=== PATIENT | male | born 1945 | race Caucasian/White ===

== ENCOUNTER 2020-09-18 19:31 | Inpatient (IN) | payer MEDICARE ==
[2020-09-18] MEDS ORDERED: ACETAMINOPHEN TAB 325 MG TAB PO PRN (19:57)
[2020-09-18] MEDS ORDERED: NALOXONE 0.4 MG/ML 1 ML VIAL IV PRN (19:57)
[2020-09-18] MEDS ORDERED: HEPARIN SODIUM 1,000 UN/ML (10ML VL) IV PRN (19:59)
[2020-09-18] MEDS ORDERED: DILTIAZEM 125 MG in SODIUM CHLORIDE 0.9% 100 ML IV SCH (20:00)
[2020-09-18] MEDS ORDERED: HEPARIN SOD,PORK IN 0.45% NACL 25,000 UNIT in 0.45% NACL 1 250ML.BAG IV SCH (20:00)
--- NOTE | 2020-09-18 20:04 | ED ---
General Adult HPI - General Chief complaint: Chest Pain Stated complaint: A-Fib Time Seen by Provider: 09/18/20 19:38 Source: patient, EMS, RN notes reviewed, old records reviewed Mode of arrival: EMS Limitations: no limitations - History of Present Illness Initial comments: 75-year-old male transferred from outside hospital for atrial fibrillation with RVR and chest pain. Patient was started on Cardizem and heparin and transferred for cardiology consultation. He had developed palpitations and jaw pain around 2 PM this afternoon. He had gone to the outside hospital and was found to be fibrillation. He had no associated vomiting. He has no symptoms at the time of my evaluation. He has a previous history of CAD status post stenting cardiac b ypass. - Related Data Allergies Allergy/AdvReac Type Severity Reaction Status Date / Time No Known Allergies Allergy Verified 09/18/20 19:46 Review of Systems ROS Statement: Those systems with pertinent positive or pertinent negative responses have been documented in the HPI. ROS Other: All systems not noted in ROS Statement are negative. Past Medical History Past Medical History: Atrial Fibrillation, Hypertension History of Any Multi-Drug Resistant Organisms: None Reported Additional Past Surgical History / Comment(s): ismaelag 1999, 2013 Smoking Status: Former smoker Past Alcohol Use History: None Reported Past Drug Use History: None Reported General Exam Limitations: no limitations General appearance: alert, in no apparent distress Head exam: Present: atraumatic, normocephalic Eye exam: Present: normal appearance, PERRL ENT exam: Present: normal exam Neck exam: Present: normal inspection. Absent: tenderness, meningismus Respiratory exam: Present: normal lung sounds bilaterally. Absent: respiratory distress, wheezes Cardiovascular Exam: Present: regular rate, normal rhythm GI/Abdominal exam: Present: soft. Absent: distended, tenderness Extremities exam: Present: normal inspection, normal capillary refill. Absent: pedal edema Neurological exam: Present: alert, oriented X3, CN II-XII intact. Absent: motor sensory deficit Psychiatric exam: Present: normal affect, normal mood Skin exam: Present: warm, dry, intact. Absent: cyanosis, diaphoretic Course Vital Signs 09/18/20 19:33 Temperature 97.5 F L Pulse Rate 72 Respiratory 20 Rate Blood Pressure 149/80 O2 Sat by Pulse 100 Oximetry EKG Findings - EKG Comments: EKG Findings:: EKG: Sinus rhythm with first-degree AV block rate is 77, TX interval 210, QRS duration 444, no ST segment elevation. Medical Decision Making - Medical Decision Making 75-year-old male presented as transfer from outside hospital. He is in sinus rhythm at the time my initial evaluation. I will continue this patient on heparin. The symptoms of jaw and chest pain. He will be admitted with serial cardiac enzymes. Repeat laboratories testing is performed as this patient was hyponatremic at 123 and hypokalemic at 2.9. He had a negative initial troponin at outside hospital. He had a normal CBC. He will be admitted to internal medicine with cardiology on consult. Disposition Clinical Impression: Chest pain, Atrial fibrillation with RVR Disposition: ADMITTED IP TO THIS HOSP Condition: Stable Is patient prescribed a controlled substance at d/c from ED?: No Referrals: Epifanio Jacobs MD [Primary Care Provider] - 1-2 days Decision to Admit Reason: Admit from EC Decision Date: 09/18/20 Decision Time: 20:04
[2020-09-18] MEDS: SODIUM CHLORIDE 0.9% 1,000 ML IV SCH (20:42)
[2020-09-18] MEDS ORDERED: SODIUM CHLORIDE 0.9% 500 ML 500 ML IV ONE (23:29)
[2020-09-19 03:21] LABS: Basophils % (A) 0 %; Eosinophils # (A) 0.1 k/uL (0-0.7); Eosinophils % (A) 1 %; HCT 36.4 % (39.0-53.0); HGB 12.7 gm/dL (13.0-17.5); Lymphocytes # (A) 1.3 k/uL (1.0-4.8); Lymphocytes % (A) 15 %; MCHC 34.8 g/dL (31.0-37.0); Mean Platelet Volume 6.7; Monocytes # (A) 0.4 k/uL (0-1.0); Monocytes % (A) 5 %; Neutrophils # (A) 6.3 k/uL (1.3-7.7); Neutrophils % (A) 76 %; Platelet Count 231 k/uL (150-450); RBC 3.83 m/uL (4.30-5.90); RDW 13.7 % (11.5-15.5); WBC 8.2 k/uL (3.8-10.6)
[2020-09-19 03:29] LABS: Partial Thromboplastin Time 39.4 sec (22.0-30.0); Prothrombin Time 10.7 sec (9.0-12.0)
[2020-09-19 03:33] LABS: African American GFR (CKD) >90 (>60 ml/min/1.73 sqM); Anion Gap 5 mmol/L; Blood Urea Nitrogen 15 mg/dL (9-20); Calcium 8.8 mg/dL (8.4-10.2); Carbon Dioxide 28 mmol/L (22-30); Chloride 94 mmol/L (98-107); Glucose 122 mg/dL (74-99); Non-African American GFR(CKD) 88 (>60 ml/min/1.73 sqM); Potassium 3.8 mmol/L (3.5-5.1); Sodium 127 mmol/L (137-145)
[2020-09-19] MEDS: SODIUM CHLORIDE 0.9% 1,000 ML IV SCH ×2 (10:02→23:46)
[2020-09-19] MEDS: METOPROLOL TARTRATE 50 MG TAB PO SCH ×2 (11:20→19:43)
--- NOTE | 2020-09-19 11:38 | ECHOF ---
Referral Reason:LV function MEASUREMENTS -------- HEIGHT: 172.7 cm WEIGHT: 86.2 kg BP: 115/64 RVIDd: 2.8 cm (< 3.3) IVSd: 1.3 cm (0.6 - 1.1) LVIDd: 4.2 cm (3.9 - 5.3) LVPWd: 1.2 cm (0.6 - 1.1) IVSs: 1.6 cm LVIDs: 2.3 cm LVPWs: 1.6 cm LA Diam: 3.7 cm (2.7 - 3.8) LAESV Index (A-L): 26.06 ml/m Ao Diam: 3.3 cm (2.0 - 3.7) AV Cusp: 1.8 cm (1.5 - 2.6) MV EXCURSION: 19.436 mm (> 18.000) MV EF SLOPE: 112 mm/s (70 - 150) EPSS: 0.7 cm MV E Nima: 1.00 m/s MV DecT: 183 ms MV A Nima: 0.82 m/s MV E/A Ratio: 1.21 RAP: 5.00 mmHg RVSP: 26.84 mmHg FINDINGS -------- Sinus rhythm. This was a technically adequate study. The left ventricular size is normal. There is mild concentric left ventricular hypertrophy. Overa ll left ventricular systolic function is low-normal with, an EF between 50 - 55 %. The diastolic fi lling pattern indicates impaired relaxation 15.83. Apical anterior LV wall motion is hypokinetic. Apical septum LV wall motion is hypokinetic. The right ventricle is normal in size. Normal LA size by volume 22+/-6 ml/m2. The right atrial size is normal. Interatrial and interventricular septum intact. There is mild aortic valve sclerosis. Trace to mild aortic regurgitation. The mitral valve leaflets are mildly thickened. Mild mitral regurgitation is present. The tricuspid valve appears structurally normal. Mild tricuspid regurgitation present. Right vent ricular systolic pressure is normal at < 35 mmHg. There is no pulmonic regurgitation present. The aortic root size is normal. Normal inferior vena cava with normal inspiratory collapse consistent with estimated right atrial pre ssure of 5 mmHg. There is no pericardial effusion. CONCLUSIONS -------- 1. There is mild concentric left ventricular hypertrophy. 2. Overall left ventricular systolic function is low-normal with, an EF between 50 - 55 %. 3. Apical anterior LV wall motion is hypokinetic. 4. Apical septum LV wall motion is hypokinetic. 5. Normal LA size by volume 22+/-6 ml/m2. 6. Trace to mild aortic regurgitation. 7. Mild mitral regurgitation is present. 8. Mild tricuspid regurgitation present. 9. There is no pericardial effusion. MANAGER FOOD: Libertad Garza RDCS
--- NOTE | 2020-09-19 11:45 | P.CRDCN ---
History of Present Illness History of present illness: HISTORY OF PRESENTING ILLNESS This is a pleasant 75-year-old male past medical history significant for coronary artery disease s/p 3 vessel CABG in 1999,Also states he underwent another CABG in 2013, peripheral artery disease s/p stent placement in 2019 (was placed on Plavix), hypertension, dyslipidemia, former tobacco use. He follows with Dr. Dupont, in [place]. We have been asked to see in consultation for atrial fibrillation with rapid ventricular response. Patient states he developed palpitations and jaw pain around 2 PM yesterday 09/18/2020. He presented to [facility] and was found to be in atrial fibrillation. Patient transferred from outside hospital for atrial fibrillation with RVR and chest pain. Patient was started on Cardizem and heparin and transferred for cardiology consultation. He converted to sinus rhythm. He denies any chest pain, shortness of breath, lower extremity edema, fatigue, weakness, lightheadedness, syncope. He states he was told he had an "off" and irregular heart beat before, he was told to take magnesium supplementation at that time. He also states that after his coronary artery bypass in 2013 patient states that he did have atrial fibrillation and was "shocked" before. He states when he had his bypass surgery he did not have jaw pain or these symptoms at that time. He denies history of diabetes or stroke. DIAGNOSTICS EKG at [facility] reveals atrial fibrillation with rapid ventricular response. EKG at [facility] revealed sinus rhythm heart rate 77, first-degree AV block, occasional PVCs. Telemetry tracings indicate sinus mechanism Most recent echocardiogram 02/2012 With EF 50%, left ventricular filling pattern suggestive of stage 1 diastolic dysfunction, mild MR, mild TR Most recent stress test 02/2012 negative for reversible ischemia Cardiac catheterization in 12/2004 at [facility] revealed patent PITTS to LAD SVG to Cx, total occlusion of the vein graft to dian RCA, total occlusion of RCA. Disease in the obtuse marginal branch of the circumflex, however, there is competitive filling coming from both bypass graft and the [place]az[place] circulation. medical therapy was advise. Laboratory reviewed, WBC 8.2, hemoglobin 12.7, platelets 231, sodium 127, serum potassium 3.8, P1 15, serum creatinine 0.8, troponin 0.092 Current home cardiac medications include aspirin 81 mg daily, Plavix 75 mg daily, metoprolol tartrate 25 mg twice day, losartan 75 mg daily, atorvastatin 80 mg nightly REVIEW OF SYSTEMS At the time of my exam: CONSTITUTIONAL: Denies fever or chills. CARDIOVASCULAR: Positive palpitations Denies chest pain, shortness of breath, orthopnea, PND RESPIRATORY: Denies cough. GASTROINTESTINAL: Denies abdominal pain, diarrhea, constipation, nausea or vomiting. MUSCULOSKELETAL: Denies myalgias. NEUROLOGIC: Denies numbness, tingling, headacbe or weakness. ENDOCRINE: Denies fatigue, weight change, polydipsia or polyurina. GENITOURINARY: Denies burning, hematuria or urgency with micturation. HEMATOLOGIC: Denies history of anemia or bleeding. PHYSICAL EXAMINATION CONSTITUTIONAL: No apparent distress. HEENT: Head is normocephalic. Pupils are equal, round. Sclerae anicteric. Mucous membranes of the mouth are moist. No JVD. No carotid bruit. CHEST EXAMINATION: Lungs are clear to auscultation. No chest wall tenderness is noted on palpation or with deep breathing. HEART EXAMINATION: Regular rate and rhythm. S1, S2 heard. Systolic murmur at apex ABDOMEN: Soft, nontender. Positive bowel sounds. EXTREMITIES: 2+ peripheral pulses, no lower extremity edema and no calf tenderness. SKIN: intact NEUROLOGIC EXAMINATION: Patient is awake, alert and oriented x3. ASSESSMENT Paroxysmal atrial fibrillation -[id number] score 3 Coronary artery disease s/p 3 vessel CABG in 1999, and had another CABG in 2013, unknown details Peripheral vascular disease s/p stenting 2019, unknown details Hypertension Dyslipidemia Former tobacco use. PLAN Obtain 2D echocardiogram Patient currently on heparin drip, Eliquis 5mg BID being checked by case management for coverage. Metoprolol tartrate increased to 50mg BID Electrophysiology consult placed for Dr. Plascencia to evaluate patient regarding further management If patient being placed on Eliquis 5mg BID we will hold patient's Plavix Continue aspirin and statin On discharge patient to follow up with his primary animal attendants and trainers. Further recommendations based on clinical course Nurse Practitioner note has been reviewed, I agree with a documented findings and plan of care. Patient was seen and examined. Past Medical History Past Medical History: Atrial Fibrillation, Coronary Artery Disease (CAD), Heart Failure, Hypertension Additional Past Medical History / Comment(s): Stent placed in 2004. History of Any Multi-Drug Resistant Organisms: None Reported Past Surgical History: Coronary Bypass/CABG Additional Past Surgical History / Comment(s): CABG 1999, 2013 Past Anesthesia/Blood Transfusion Reactions: No Reported Reaction Past Psychological History: No Psychological Hx Reported Smoking Status: Never smoker Past Alcohol Use History: None Reported Past Drug Use History: None Reported Medications and Allergies Home Medications Medication Instructions Recorded Confirmed Type Aspirin EC [Ecotrin Low Dose] 81 mg PO DAILY 09/18/20 09/18/20 History Atorvastatin [Lipitor] 80 mg PO HS 09/18/20 09/18/20 History Losartan [Cozaar] 75 mg PO DAILY 09/18/20 09/18/20 History Metoprolol Tartrate [Lopressor] 25 mg PO BID 09/18/20 09/18/20 History Apixaban [Eliquis] 5 mg PO BID #60 tab 09/19/20 Rx Allergies Allergy/AdvReac Type Severity Reaction Status Date / Time No Known Allergies Allergy Verified 09/18/20 20:49 Physical Exam Vitals: Vital Signs Temp Pulse Pulse Resp BP BP Pulse Ox 09/19/20 04:00 97.6 F 68 18 115/64 98 09/19/20 01:00 75 18 124/69 100 09/18/20 23:20 60 20 123/70 100 09/18/20 23:15 53 L 18 96/69 99 09/18/20 23:10 51 L 16 64/46 99 09/18/20 23:00 54 L 20 121/52 100 09/18/20 22:30 73 20 119/71 97 09/18/20 22:00 71 20 123/73 100 09/18/20 21:00 73 20 128/95 95 09/18/20 19:33 97.5 F L 72 20 149/80 100 Intake and Output 09/18/20 09/19/20 09/19/20 22:59 06:59 14:59 Intake Total 372.978 Output Total 250 Balance 122.978 Intake: IV 300 Sodium Chloride 0.9% 1, 300 000 ml @ 75 mls/hr IV . [id number] [facility] Rx#:[id number] Intake, IV Titration 72.978 Amount Heparin Sod,Pork in 0.45% 72.978 NaCl 25,000 unit In 0.45 % NaCl 1 250ml.bag @ 11.6 UNITS/KG/HR 9.997 mls/hr IV .Q24H [facility] Rx#: [id number] Output: Urine 250 Other: Voiding Method Bedside Commode Urinal # Voids 1 Weight 86.183 kg 86.183 kg Results 09/19/20 02:24 09/19/20 02:24 Cardiac Enzymes 09/18/20 09/19/20 Range/Units 21:16 00:05 Troponin I 0.092 H* 0.095 H* (0.000-0.034) ng/mL Coagulation 09/19/20 Range/Units 02:24 PT 10.7 (9.0-12.0) sec APTT 39.4 H (22.0-30.0) sec CBC 09/19/20 Range/Units 02:24 WBC 8.2 (3.8-10.6) k/uL RBC 3.83 L (4.30-5.90) m/uL Hgb 12.7 L (13.0-17.5) gm/dL Hct 36.4 L (39.0-53.0) % Plt Count 231 (150-450) k/uL Comprehensive Metabolic Panel 09/19/20 Range/Units 02:24 Sodium 127 L (137-145) mmol/L Potassium 3.8 (3.5-5.1) mmol/L Chloride 94 L (98-107) mmol/L Carbon Dioxide 28 (22-30) mmol/L BUN 15 (9-20) mg/dL Creatinine 0.81 (0.66-1.25) mg/dL Glucose 122 H (74-99) mg/dL Calcium 8.8 (8.4-10.2) mg/dL Current Medications Generic Name Dose Route Start Last Admin Trade Name Freq PRN Reason Stop Dose Admin Acetaminophen 650 mg 09/18/20 19:57 Acetaminophen Tab 325 Mg Tab PO Q6HR PRN Mild Pain or Fever > 100.5 Heparin Sodium (Porcine) 0 unit 09/18/20 19:59 09/19/20 04:06 Heparin Sodium 1,000 Un/Ml (10ml Vl) IV 2,150 unit PER PROTOCOL PRN Administration Low PTT Protocol Sodium Chloride 1,000 mls @ 75 mls/hr 09/18/20 20:00 09/18/20 20:42 Saline 0.9% IV 75 mls/hr .[id number] SAUL Administration Heparin Sodium/Sodium Chloride 250 mls @ 9.997 mls/hr 09/18/20 20:00 09/19/20 03:59 25,000 unit/ Sodium Chloride IV 13.6 units/kg/hr .Q24H SAUL 11.721 mls/hr Titration Protocol 11.6 UNITS/KG/HR Diltiazem HCl 125 mg/ Sodium 125 mls @ 5 mls/hr 09/18/20 20:00 09/18/20 20:41 Chloride IV 5 mg/hr .Q24H SAUL 5 mls/hr Administration 5 MG/HR Naloxone HCl 0.2 mg 09/18/20 19:57 Naloxone 0.4 Mg/Ml 1 Ml Vial IV Q2M PRN Opioid Reversal Intake and Output 09/18/20 09/19/20 09/19/20 22:59 06:59 14:59 Intake Total 372.978 Output Total 250 Balance 122.978 Intake: IV 300 Sodium Chloride 0.9% 1, 300 000 ml @ 75 mls/hr IV . [id number] [facility] Rx#:[id number] Intake, IV Titration 72.978 Amount Heparin Sod,Pork in 0.45% 72.978 NaCl 25,000 unit In 0.45 % NaCl 1 250ml.bag @ 11.6 UNITS/KG/HR 9.997 mls/hr IV .Q24H [facility] Rx#: [id number] Output: Urine 250 Other: Voiding Method Bedside Commode Urinal # Voids 1 Weight 86.183 kg 86.183 kg 09/19/20 02:24 09/19/20 02:24
--- NOTE | 2020-09-19 11:46 | P.DS ---
Providers Date of admission: 09/18/20 19:58 Attending physician: Eliecer Chaparro MD Consults: 09/18/20 19:58 Consult Physician Routine Consulting Provider: Ricki Plascencia Consult Reason/Comments: A. fib with RVR Do you want consulting provider notified?: Yes 09/19/20 11:25 Consult Physician Routine Consulting Provider: Ricki Plascencia Consult Reason/Comments: Electrophysiology consult Do you want consulting provider notified?: Already Contacted Primary care physician: Epifanio Jacobs Hospital Course: Patient is an 75-year-old the male came in with complaints of a palpitations which started around the afternoon as today. Patient denied any significant chest pain patient denied any fever chills patient was having some shortness of breath. Patient was found to be in atrial fibrillation was started on Cardizem patient converted to sinus rhythm patient does take 25 mg twice a day of metoprolol which will be switched to 50 mg twice a day patient is a first episode of A. fib. Patient denied any history of and S2 heart failure but does have history of coronary artery disease with CABG twice in the past. Patient follows up with an outside flap maker cardiology was consulted troponins are minimally elevated because of atrial fibrillation. Patient doesn't have any signs or symptoms of sepsis at this time. TSH is not available at this time patient's sodium is 127. Patient was receiving IV fluids since last night. Patient appears to be dehydrated on admission. REVIEW OF SYSTEMS: CONSTITUTIONAL: No fever, no malaise, no fatigue. HEENT: No recent visual problems or hearing problems. Denied any sore throat. CARDIOVASCULAR: No chest pain, orthopnea, PND, no syncope. PULMONARY: No shortness of breath, no cough, no hemoptysis. GASTROINTESTINAL: No diarrhea, no nausea, no vomiting, no abdominal pain. NEUROLOGICAL: No headaches, no weakness, no numbness. HEMATOLOGICAL: Denies any bleeding or petechiae. GENITOURINARY: Denies any burning micturition, frequency, or urgency. MUSCULOSKELETAL/RHEUMATOLOGICAL: Denies any joint pain, swelling, or any muscle pain. ENDOCRINE: Denies any polyuria or polydipsia. The rest of the 14-point review of systems is negative. PHYSICAL EXAMINATION: GENERAL: The patient is alert and oriented x3, not in any acute distress. Well developed, well nourished. HEENT: Pupils are round and equally reacting to light. EOMI. No scleral icterus. No conjunctival pallor. Normocephalic, atraumatic. No pharyngeal erythema. No thyromegaly. CARDIOVASCULAR: S1 and S2 present. No murmurs, rubs, or gallops. PULMONARY: Chest is clear to auscultation, no wheezing or crackles. ABDOMEN: Soft, nontender, nondistended, normoactive bowel sounds. No palpable organomegaly. MUSCULOSKELETAL: No joint swelling or deformity. EXTREMITIES: No cyanosis, clubbing, or pedal edema. NEUROLOGICAL: Gross neurological examination did not reveal any focal deficits. SKIN: No rashes. Assessment and plan - atrial fibrillation converted to sinus rhythm, rapid ventricular rate on admission patient appears to have paroxysmal A. fib: Cardiology evaluated the patient patient will be started on anticoagulation. We'll check if he shows covers Eliquis 60 patient will be discharged on Eliquis. Patient was bit hypotensive stress because of a mild dehydration as well as atrial fibrillation which improved at this time patient takes losartan which we will continue. Atrial fibrillation is probably secondary to dehydration. Echocardiogram was ordered and results are pending -I bulimic hyponatremia secondary to dehydration received IV fluids and repeat basic metabolic profile again today -Mild elevation of troponins: Secondary to atrial fibrillation -Hypertension -Coronary artery disease - DVT prophylaxis: Is on IV heparin and will be discharged on Eliquis Patient will be discharged today most probably depending on cardiology's recommendations increasing the dose of metoprolol to 50 twice a day patient will be started on Eliquis patient will undergo evaluation by electrophysiology. Awaiting echocardiogram Patient Condition at Discharge: Stable Plan - Discharge Summary New Discharge Prescriptions: New Apixaban [Eliquis] 5 mg PO BID #60 tab Continue Losartan [Cozaar] 75 mg PO DAILY Aspirin EC [Ecotrin Low Dose] 81 mg PO DAILY Atorvastatin [Lipitor] 80 mg PO HS Discontinued Aspirin EC [Ecotrin] 325 mg PO DAILY Clopidogrel [Plavix] 75 mg PO DAILY No Action Metoprolol Tartrate [Lopressor] 25 mg PO BID Discharge Medication List Aspirin EC [Ecotrin Low Dose] 81 mg PO DAILY 09/18/20 [History] Atorvastatin [Lipitor] 80 mg PO HS 09/18/20 [History] Losartan [Cozaar] 75 mg PO DAILY 09/18/20 [History] Metoprolol Tartrate [Lopressor] 25 mg PO BID 09/18/20 [History] Apixaban [Eliquis] 5 mg PO BID #60 tab 09/19/20 [Rx] Follow up Appointment(s)/Referral(s): Epifanio Jacobs MD [Primary Care Provider] - 3 Days
--- NOTE | 2020-09-19 11:47 | P.HPIM ---
History of Present Illness Patient is an 75-year-old the male came in with complaints of a palpitations which started around the afternoon as today. Patient denied any significant chest pain patient denied any fever chills patient was having some shortness of breath. Patient was found to be in atrial fibrillation was started on Cardizem patient converted to sinus rhythm patient does take 25 mg twice a day of metoprolol which will be switched to 50 mg twice a day patient is a first episode of A. fib. Patient denied any history of and S2 heart failure but does have history of coronary artery disease with CABG twice in the past. 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 Patient doesn't have any signs or symptoms of sepsis at this time. TSH is not available at this time patient's sodium is 127. Patient was receiving IV fluids since last night. Radha mccartney appears to be dehydrated on admission. REVIEW OF SYSTEMS: CONSTITUTIONAL: No fever, no malaise, no fatigue. HEENT: No recent visual problems or hearing problems. Denied any sore throat. CARDIOVASCULAR: No chest pain, orthopnea, PND, no syncope. PULMONARY: No shortness of breath, no cough, no hemoptysis. GASTROINTESTINAL: No diarrhea, no nausea, no vomiting, no abdominal pain. NEUROLOGICAL: No headaches, no weakness, no numbness. HEMATOLOGICAL: Denies any bleeding or petechiae. GENITOURINARY: Denies any burning micturition, frequency, or urgency. MUSCULOSKELETAL/RHEUMATOLOGICAL: Denies any joint pain, swelling, or any muscle pain. ENDOCRINE: Denies any polyuria or polydipsia. The rest of the 14-point review of systems is negative. PHYSICAL EXAMINATION: GENERAL: The patient is alert and oriented x3, not in any acute distress. Well developed, well nourished. HEENT: Pupils are round and equally reacting to light. EOMI. No scleral icterus. No conjunctival pallor. Normocephalic, atraumatic. No pharyngeal erythema. No thyromegaly. CARDIOVASCULAR: S1 and S2 present. No murmurs, rubs, or gallops. PULMONARY: Chest is clear to auscultation, no wheezing or crackles. ABDOMEN: Soft, nontender, nondistended, normoactive bowel sounds. No palpable organomegaly. MUSCULOSKELETAL: No joint swelling or deformity. EXTREMITIES: No cyanosis, clubbing, or pedal edema. NEUROLOGICAL: Gross neurological examination did not reveal any focal deficits. SKIN: No rashes. Assessment and plan - atrial fibrillation converted to sinus rhythm, rapid ventricular rate on admission patient appears to have paroxysmal A. fib: Cardiology evaluated the patient patient will be started on anticoagulation. We'll check if he shows covers Eliquis 60 patient will be discharged on Eliquis. Patient was bit hypotensive stress because of a mild dehydration as well as atrial fibrillation which improved at this time patient takes losartan which we will continue. Atrial fibrillation is probably secondary to dehydration. Echocardiogram was ordered and results are pending -I bulimic hyponatremia secondary to dehydration received IV fluids and repeat basic metabolic profile again today -Mild elevation of troponins: Secondary to atrial fibrillation -Hypertension -Coronary artery disease - DVT prophylaxis: Is on IV heparin and will be discharged on Eliquis Patient will be discharged today most probably depending on cardiology's recommendations increasing the dose of metoprolol to 50 twice a day patient will be started on Eliquis patient will undergo evaluation by electrophysiology. Awaiting echocardiogram Patient Condition at Discharge: Stable Past Medical History Past Medical History: Atrial Fibrillation, Coronary Artery Disease (CAD), Heart Failure, Hypertension Additional Past Medical History / Comment(s): Stent placed in 2004. History of Any Multi-Drug Resistant Organisms: None Reported Past Surgical History: Coronary Bypass/CABG Additional Past Surgical History / Comment(s): CABG 1999, 2013 Past Anesthesia/Blood Transfusion Reactions: No Reported Reaction Past Psychological History: No Psychological Hx Reported Smoking Status: Never smoker Past Alcohol Use History: None Reported Past Drug Use History: None Reported Medications and Allergies Home Medications Medication Instructions Recorded Confirmed Type Aspirin EC [Ecotrin Low Dose] 81 mg PO DAILY 09/18/20 09/18/20 History Atorvastatin [Lipitor] 80 mg PO HS 09/18/20 09/18/20 History Losartan [Cozaar] 75 mg PO DAILY 09/18/20 09/18/20 History Metoprolol Tartrate [Lopressor] 25 mg PO BID 09/18/20 09/18/20 History Apixaban [Eliquis] 5 mg PO BID #60 tab 09/19/20 Rx Allergies Allergy/AdvReac Type Severity Reaction Status Date / Time No Known Allergies Allergy Verified 09/18/20 20:49 Physical Exam Vitals: Vital Signs Temp Pulse Pulse Resp BP BP Pulse Ox 09/19/20 11:18 97.5 F L 73 18 178/82 95 09/19/20 08:00 97.6 F 71 18 152/78 99 09/19/20 04:00 97.6 F 68 18 115/64 98 09/19/20 01:00 75 18 124/69 100 09/18/20 23:20 60 20 123/70 100 09/18/20 23:15 53 L 18 96/69 99 09/18/20 23:10 51 L 16 64/46 99 09/18/20 23:00 54 L 20 121/52 100 09/18/20 22:30 73 20 119/71 97 09/18/20 22:00 71 20 123/73 100 09/18/20 21:00 73 20 128/95 95 09/18/20 19:33 97.5 F L 72 20 149/80 100 Intake and Output 09/18/20 09/19/20 09/19/20 22:59 06:59 14:59 Intake Total 372.978 Output Total 250 400 Balance 122.978 -400 Intake: IV 300 Sodium Chloride 0.9% 1, 300 000 ml @ 75 mls/hr IV . [id number] SAUL Rx#:[id number] Intake, IV Titration 72.978 Amount Heparin Sod,Pork in 0.45% 72.978 NaCl 25,000 unit In 0.45 % NaCl 1 250ml.bag @ 11.6 UNITS/KG/HR 9.997 mls/hr IV .Q24H SAUL Rx#: [id number] Output: Urine 250 400 Other: Voiding Method Bedside Commode Bedside Commode Urinal Urinal # Voids 1 1 Weight 86.183 kg 86.183 kg Results CBC & Chem 7: 09/19/20 02:24 09/19/20 02:24 Labs: Abnormal Lab Results - Last 24 Hours (Table) 09/18/20 09/19/20 09/19/20 Range/Units 21:16 00:05 02:24 RBC 3.83 L (4.30-5.90) m/uL Hgb 12.7 L (13.0-17.5) gm/dL Hct 36.4 L (39.0-53.0) % APTT (22.0-30.0) sec Sodium (137-145) mmol/L Chloride (98-107) mmol/L Glucose (74-99) mg/dL Troponin I 0.092 H* 0.095 H* (0.000-0.034) ng/mL 09/19/20 09/19/20 09/19/20 Range/Units 02:24 02:24 10:35 RBC (4.30-5.90) m/uL Hgb (13.0-17.5) gm/dL Hct (39.0-53.0) % APTT 39.4 H 55.7 H (22.0-30.0) sec Sodium 127 L (137-145) mmol/L Chloride 94 L (98-107) mmol/L Glucose 122 H (74-99) mg/dL Troponin I (0.000-0.034) ng/mL Thrombosis Risk Factor Assmnt - Choose All That Apply Each Risk Factor Represents 2 Points: Age 61-74 years Thrombosis Risk Factor Assessment Total Risk Factor Score: 2 Thrombosis Risk Factor Assessment Level: Low Risk
[2020-09-19 12:43] LABS: African American GFR (CKD) >90 (>60 ml/min/1.73 sqM); Anion Gap 9 mmol/L; Blood Urea Nitrogen 14 mg/dL (9-20); Calcium 9.3 mg/dL (8.4-10.2); Carbon Dioxide 27 mmol/L (22-30); Chloride 96 mmol/L (98-107); Glucose 143 mg/dL (74-99); Non-African American GFR(CKD) 88 (>60 ml/min/1.73 sqM); Sodium 132 mmol/L (137-145)
[2020-09-19] MEDS: APIXABAN 5 MG TAB PO SCH ×2 (13:33→19:43)
[2020-09-19] MEDS ORDERED: ATORVASTATIN 80 MG TAB PO SCH (21:00)
[2020-09-20] MEDS ORDERED: LOSARTAN 50 MG TAB PO SCH (09:00)
[2020-09-20] MEDS ORDERED: CLOPIDOGREL 75 MG TAB PO SCH (09:00)
[2020-09-20] MEDS: METOPROLOL TARTRATE 50 MG TAB PO SCH (09:23)
[2020-09-20] MEDS: APIXABAN 5 MG TAB PO SCH (09:23)
[2020-09-20 11:05] VITALS: RESP 18
[2020-09-20] MEDS ORDERED: SODIUM CHLORIDE 0.9% 1,000 ML IV SCH (13:45)
--- NOTE | 2020-09-20 14:18 | P.PN ---
Subjective This is a pleasant 75-year-old male past medical history significant for coronary artery disease s/p 3 vessel CABG in 1999,Also states he underwent a nother CABG in 2013, peripheral artery disease s/p stent placement in 2019 (was placed on Plavix), hypertension, dyslipidemia, former tobacco use. He follows with Dr. Dupont, in [place]. We have been asked to see in consultation for atrial fibrillation with rapid ventricular response and elevated troponin. Patient states he developed palpitations and jaw pain around 2 PM yesterday 09/18/2020. He presented to [facility] and was found to be in atrial fibrillation. Patient transferred from outside hospital for atrial fibrillation with RVR and chest pain. Patient was started on Cardizem and heparin and transferred for cardiology consultation. He converted to sinus rhythm. He denies any chest pain, shortness of breath, lower extremity edema, fatigue, weakness, lightheadedness, syncope. He states he was told he had an "off" and irregular heart beat before, he was told to take magnesium supplementation at that time. He also states that after his coronary artery bypass in 2013 patient states that he did have atrial fibrillation and was "shocked" before. He states when he had his bypass surgery he did not have jaw pain or these symptoms at that time. He denies history of diabetes or stroke. Echocardiogram revealed left ventricular systolic function is low normal with an EF of 50-55%, apical inferior LV wall and apical septum LV wall hypokinetic, mild mitral regurgitation, mild tricuspid regurgitation. 09/20/2020: Patient seen and examined at bedside, no distress. He denies any complaints at this time. Telemetry reviewed patient continues to maintain sinus mechanism HR 50 to 60s. Blood pressure 129/60, heart rate 65, afebrile, maintaining oxygen saturations on room air. Patient currently maintained on Eliquis 5 mg twice day, atorvastatin 80 mg nightly, Plavix 75 mg daily, losartan 50 mg daily, metoprolol tartrate 50 mg twice a day. PHYSICAL EXAMINATION CONSTITUTIONAL: No apparent distress. HEENT: Head is normocephalic. Pupils are equal, round. Sclerae anicteric. Mucous membranes of the mouth are moist. No JVD. No carotid bruit. CHEST EXAMINATION: Lungs are clear to auscultation. No chest wall tenderness is noted on palpation or with deep breathing. HEART EXAMINATION: Regular rate and rhythm. S1, S2 heard. Systolic murmur at apex ABDOMEN: Soft, nontender. Positive bowel sounds. EXTREMITIES: 2+ peripheral pulses, no lower extremity edema and no calf tenderness. SKIN: intact NEUROLOGIC EXAMINATION: Patient is awake, alert and oriented x3. ASSESSMENT New onset Paroxysmal atrial fibrillation -[id number] score 3 Elevated troponin, possibly related to ischemia vs atrial fibrillation with RVR Coronary artery disease s/p 3 vessel CABG in 1999, and had another CABG in 2013, unknown details Peripheral vascular disease s/p stenting 2019, unknown details Hypertension Dyslipidemia Former tobacco use. PLAN Electrophysiology consult placed for Dr. Plascencia to evaluate patient regarding further management- plan for outpatient follow up at this time. Continue Eliquis 5mg BID Metoprolol tartrate increased to 50mg BID Continue plavix and statin We recommend stress test for the patient, this can be done as an outpatient. Patient can be discharged and follow up with Dr. Morse outpatient. Nurse Practitioner note has been reviewed, I agree with a documented findings and plan of care. Patient was seen and examined. Objective - Vital Signs Vital signs: Vital Signs Temp 97.4 F L 09/20/20 12:00 Pulse 58 L 09/20/20 12:00 Resp 18 09/20/20 08:00 BP 129/60 09/20/20 12:00 Pulse Ox 97 09/20/20 12:00 Intake & Output 09/19/20 09/20/20 09/20/20 18:59 06:59 18:59 Intake Total 118 Output Total 700 Balance -700 118 Weight 85.3 kg Intake: Oral 118 Output: Urine 700 Other: Voiding Method Bedside Commode Bedside Commode Bedside Commode Urinal Urinal Urinal # Voids 1 1 - Labs CBC & Chem 7: 09/19/20 02:24 09/19/20 10:35
[2020-09-20 16:27] VITALS: BP 132/66; PULSE 60; TEMP 97.2
--- NOTE | 2020-09-20 17:22 | P.EPCON ---
Electrophysiology Consult - EP Consult Electrophysiology Consult: This is Dr. Plascencia dictating an electrophysiology consult on this patient The patient was interviewed and examined IMPRESSION / ASSESSMENT: Paroxysmal atrial fibrillation, symptomatic, RVR associated with weakness fatigue and shortness of breath Past history of postoperative atrial fibrillation Coronary artery disease status post coronary artery bypass grafting. He's had coronary artery bypass grafting on 2 occasions, the last one in 2013. He does not remember where this surgery took place Hypertension History of multiple coronary stenting History of intermittent sinus bradycardia down to the 40s with a mildly prolo nged NJ interval Mildly abnormal troponin on this admission PLAN: Avoid antiarrhythmic drug therapy in view of the bradycardia. Avoid). Drugs in view of his history of coronary artery disease and multiple coronary stents Consider A. fib ablation instead I would like to get his operative records from 2013 to see if a maze procedure had been performed Based upon that I will plan out his A. fib ablation strategy Unfortunately the patient does not remember whether his bypass surgery to place at the [facility] or in [facility] I will attempt to get the records In the meantime anticoagulated with ELIQUIS 5 mg twice daily. Patient was instructed not to stop ELIQUIS prior to the procedure and that he was to continue this lifelong Stop aspirin continue Plavix Continue metoprolol and losartan as well as atorvastatin Patient would like proceed with an A. fib ablation and I will schedule the procedure for him HPI Patient started experiencing sudden onset of palpitations and shortness of breath He was dizzy and weak short of breath He developed a discomfort in the left jaw and that's what prompted him to come to the hospital Here he was found to be in A. fib with RVR at 164 beats a minute He was treated with IV Cardizem and he converted spontaneously to sinus rhythm while in sinus rhythm he has occasional PVCs and a mildly prolonged NJ interval ROS: No fever chills or rigors, no cough, phlegm or expectoration, no nausea, vomiting or diarrhea, no hematuria, dysuria, no musculoskeletal complaints, no strokes or seizures, no skin lesions. EXAMINATION: Pulse rate in the 50s, blood pressure 132 6 6 mmHg Breath sounds are clear no rhonchi no crackles Normal heart sounds normal S1 normal S2 No JVD No lower extremity edema REVIEW OF LABS, ECG & MEDICAL DATA Hemoglobin 2.7 Sodium 132 BUN 14 creatinine 0.8 Mildly abnormal troponins of 0.09 and 0.09 Normal TSH of 2.1
== END 2020-09-20 17:16 | disposition home or self-care (01) | DRG 309 ==
LOC: EC 19:31 → 3SCARD 19:58
PROVIDERS: ADMIT Internal Medicine; ATTEND Internal Medicine
DX: I48.0 Paroxysmal atrial fibrillation (principal); E87.1 Hypo-osmolality and hyponatremia; E78.5 Hyperlipidemia, unspecified; E86.0 Dehydration; E86.1 Hypovolemia; E87.6 Hypokalemia; I25.10 Atherosclerotic heart disease of native coronary artery without angina pectoris; I11.0 Hypertensive heart disease with heart failure; I50.9 Heart failure, unspecified; I73.9 Peripheral vascular disease, unspecified; I95.9 Hypotension, unspecified; Z79.02 Long term (current) use of antithrombotics/antiplatelets; Z79.82 Long term (current) use of aspirin; Z79.899 Other long term (current) drug therapy; Z87.891 Personal history of nicotine dependence; Z95.1 Presence of aortocoronary bypass graft; Z95.5 Presence of coronary angioplasty implant and graft; Z95.820 Peripheral vascular angioplasty status with implants and grafts; Z79.01 Long term (current) use of anticoagulants
CPT/HCPCS: 80048; 84443; 84484; 85025; 85610; 85730; 93005; 93306; 96361; 96365; 96366; 96368; 96376; 99285

== ENCOUNTER 2021-01-14 11:33 | Day surgery (SDC) | payer MEDICARE ==
[2021-01-14] MEDS: SODIUM CHLORIDE 0.9% 1,000 ML IV SCH (12:03)
[2021-01-14] MEDS ORDERED: LIDOCAINE URO-JET JELLY 2% 5 ML KIT ONE (12:14)
[2021-01-14 12:15] LABS: Basophils % (A) 0 %; Eosinophils # (A) 0.1 k/uL (0-0.7); Eosinophils % (A) 1 %; HCT 37.9 % (39.0-53.0); HGB 13.7 gm/dL (13.0-17.5); Lymphocytes % (A) 20 %; MCH 32.4 pg (25.0-35.0); MCHC 36.1 g/dL (31.0-37.0); MCV 89.9 fL (80.0-100.0); Mean Platelet Volume 6.9; Monocytes # (A) 0.7 k/uL (0-1.0); Monocytes % (A) 7 %; Neutrophils # (A) 6.8 k/uL (1.3-7.7); Neutrophils % (A) 69 %; Platelet Count 322 k/uL (150-450); RBC 4.21 m/uL (4.30-5.90); RDW 12.8 % (11.5-15.5); WBC 9.8 k/uL (3.8-10.6)
[2021-01-14 12:29] LABS: African American GFR (CKD) >90 (>60 ml/min/1.73 sqM); Anion Gap 9 mmol/L; Blood Urea Nitrogen 18 mg/dL (9-20); Calcium 9.2 mg/dL (8.4-10.2); Carbon Dioxide 26 mmol/L (22-30); Chloride 99 mmol/L (98-107); Glucose 104 mg/dL (74-99); Non-African American GFR(CKD) 86 (>60 ml/min/1.73 sqM); Potassium 4.3 mmol/L (3.5-5.1); Sodium 134 mmol/L (137-145)
[2021-01-14] MEDS ORDERED: ONDANSETRON 4 MG/2 ML VIAL ONE (13:35)
[2021-01-14] MEDS ORDERED: fentaNYL (PF) 50 MCG/ML 2 ML AMP ONE (13:35)
[2021-01-14] MEDS ORDERED: MIDAZOLAM 2 MG/2 ML VIAL ONE (13:35)
[2021-01-14] MEDS ORDERED: HEPARIN SODIUM,PORCINE 10,000 UNIT/ML 1 ML VIAL ONE (13:35)
[2021-01-14] MEDS ORDERED: ROCURONIUM 10 MG/ML (5 ML VIAL) IV ONE (13:35)
[2021-01-14] MEDS ORDERED: DEXAMETHASONE SOD PHOSPHATE 10 MG/ML 1 ML VIAL ONE (13:35)
[2021-01-14] MEDS ORDERED: LIDOCAINE 1% INJ 10MG/ML (20 ML MDV) ONE ×2 (13:35→14:15)
[2021-01-14] MEDS ORDERED: PHENYLEPHRINE-0.9% NACL SYG 1,000 MCG/10 ML SYRINGE ONE (13:35)
[2021-01-14] MEDS ORDERED: PROPOFOL 10 MG/ML 20 ML VIAL IV ONE (13:35)
[2021-01-14] MEDS ORDERED: SUCCINYLCHOLINE CHLORIDE 100 MG/5 ML SYR IV ONE (13:35)
--- NOTE | 2021-01-14 13:42 | P.HPCAR ---
History of Present Illness This is Dr. Plascencia dictating an H/P on this patient The patient was interviewed and examined IMPRESSION / ASSESSMENT: Symptomatic paroxysmal atrial fibrillation associated with weakness fatigue and shortness of breath Coronary artery disease status post coronary bypass grafting Hypertension History of coronary stenting History of sinus bradycardia down to the 40s 1/6 sinus syndrome Mild appropriate MO interval PLAN: Patient is stable from a cardiac standpoint. His rhythm is regular this time. He is stable to proceed with A. fib ablation under general anesthesia This is discussed with the patient HPI Patient is doing fairly well over the last several weeks. He has not had any fever chills or cough phlegm or expectoration No abdominal symptoms No chest discomfort no syncope ROS: No fever chills or rigors, no cough, phlegm or expectoration, no nausea, vomiting or diarrhea, no hematuria, dysuria, no musculoskeletal complaints, no strokes or seizures, no skin lesions. EXAMINATION: Afebrile 98.4F pulse rate in the 70s, blood pressure 155 was 71, pulse ox 97% Sounds are clear no rhonchi no crackles Heart sounds S1 and S2 are normal and regular this time no murmurs Abdomen soft nontender Extremities warm no edema No JVD REVIEW OF LABS, ECG & MEDICAL DATA Normal white count of 9.8 thousand Hemoglobin 13.7 and hematocrit 37.9 Platelet counts. 2000 Sodium 134, potassium 4.3 BUN 18 and creatinine 0.87 Coronavirus PCR not detected Physical Exam Vitals: Vital Signs Temp Pulse Resp BP Pulse Ox 01/14/21 12:01 98.4 F 75 18 155/71 97 Intake and Output 01/13/21 01/14/21 01/14/21 22:59 06:59 14:59 Intake Total 20 Balance 20 Intake: IV 20 Other: Weight 88.9 kg Past Medical History Past Medical History: Atrial Fibrillation, Coronary Artery Disease (CAD), Cancer, Heart Failure, CVA/TIA, GERD/Reflux, Hyperlipidemia, Hypertension Additional Past Medical History / Comment(s): SEE DR. PLASCENCIA'S [facility] History of Any Multi-Drug Resistant Organisms: None Reported Past Surgical History: Coronary Bypass/CABG, Heart Catheterization With Stent, Hernia Repair, Orthopedic Surgery Additional Past Surgical History / Comment(s): CABG 1999, 2013. CERVICAL SURGERY. PROSTATECTOMY. LEFT KNEE ARTHROPLASTY. SHOULDER REPLACEMENT RIGHT. RIGHT LEG STENT. BILATERAL CATARACTS Past Anesthesia/Blood Transfusion Reactions: No Reported Reaction Date of Last Stent Placement:: 2005 Past Psychological History: No Psychological Hx Reported Smoking Status: Never smoker Past Alcohol Use History: Rare Additional Past Alcohol Use History / Comment(s): SMOKED FOR ABOUT 3-4 YEARS, 3PPD, BUT QUIT ABOUT 40 YRS. Past Drug Use History: None Reported Physical Examination Vital Signs Temp Pulse Resp BP Pulse Ox 01/14/21 12:01 98.4 F 75 18 155/71 97 Intake and Output 01/13/21 01/14/21 01/14/21 22:59 06:59 14:59 Intake Total 20 Balance 20 Intake: IV 20 Other: Weight 88.9 kg Results 01/14/21 11:55 01/14/21 11:55 CBC 01/14/21 Range/Units 11:55 WBC 9.8 (3.8-10.6) k/uL RBC 4.21 L (4.30-5.90) m/uL Hgb 13.7 (13.0-17.5) gm/dL Hct 37.9 L (39.0-53.0) % Plt Count 322 (150-450) k/uL Comprehensive Metabolic Panel 01/14/21 Range/Units 11:55 Sodium 134 L (137-145) mmol/L Potassium 4.3 (3.5-5.1) mmol/L Chloride 99 (98-107) mmol/L Carbon Dioxide 26 (22-30) mmol/L BUN 18 (9-20) mg/dL Creatinine 0.87 (0.66-1.25) mg/dL Glucose 104 H (74-99) mg/dL Calcium 9.2 (8.4-10.2) mg/dL Current Medications Generic Name Dose Route Start Last Admin Trade Name Freq PRN Reason Stop Dose Admin Sodium Chloride 1,000 mls @ 50 mls/hr 01/14/21 06:29 01/14/21 12:03 Saline 0.9% IV 02/13/21 06:30 20 mls .Q20H SAUL Administration Intake and Output 01/13/21 01/14/21 01/14/21 22:59 06:59 14:59 Intake Total 20 Balance 20 Intake: IV 20 Other: Weight 88.9 kg Patient Weight 01/15/21 06:59 Weight 88.9 kg 01/14/21 11:55 01/14/21 11:55
[2021-01-14] MEDS ORDERED: LIDOCAINE 1% INJ 10MG/ML (20 ML MDV) SQ ONE (14:35)
[2021-01-14] MEDS ORDERED: HEPARIN SOD,PORK IN 0.45% NACL 25,000 UNIT in 0.45% NACL 1 250ML.BAG IV ONE (14:35)
[2021-01-14] MEDS ORDERED: IOPAMIDOL-370 100ML BTL INJ ONE (16:11)
--- NOTE | 2021-01-14 16:23 | P.EPPROC ---
- EP Procedure Note Electrophysiology Procedure Note: PROCEDURE A. fib ablation, cryoablation of the pulmonary veins DIAGNOSIS Paroxysmal Atrial fibrillation, symptomatic, refractory to therapy Underlying sick sinus syndrome CAD status post coronary artery bypass grafting RESULT No left atrial appendage mass seen on intracardiac echo Successful A. fib ablation/pulmonary vein isolation of all veins using cryo- ablation Complete entrance block in all 4 veins confirmed No evidence for phrenic nerve injury Esophageal deflection YES, left-sided esophagus PROCEDURE DETAILS Patient was brought to the EP lab in a fasting state. Written informed consent was obtained prior to the procedure. Procedure performed under general anesthesia After initial muscle relaxant use, muscle relaxants were not given thereafter in order to assess phrenic nerve during procedure. Patient prepped and draped as per protocol Full cryo-set up with standard preparation of the cryoablation tools done. Femoral Venous access obtained on the right and left groins Venous and arterial Sheaths placed. Diagnostic catheters for the high right atrium, phrenic nerve stimulation and pacing, His bundle, RV and coronary sinus placed Intracardiac echo catheter placed. Long sheath placed in the right atrium Left and right transseptal catheterization performed under intracardiac echo guidance. Intravenous heparin with aCT above 300 Later, catheter positioning and balloon positioning in the left atrium, under intracardiac echo guidance Diagnostic EP study with Coronary sinus pacing and recording Baseline measurements sinus cycle length 887 him a QRS 73, IL 198 ms, QT 350 ms AH 93 ms, HV 39 ms Transseptal catheterization performed RA pressure 13/6/10 LA pressure 26/5/14 Transseptal catheterization performed with standard sheath. The cryoablation sheath was then placed with an over the wire exchange without any acute complications. All 4 pulmonary veins were isolated in the following sequence: Left superior followed by left inferior followed by right superior followed by right inferior The cryo-ablation balloon was placed at the os of each vein 1.5 mL of IV dye was injected to confirm an occluded vein Goal during cryoablation was to achieve complete occlusion of the pulmonary vein, achieve -30 degrees C at 30 seconds and achieve -40 degrees C at 60 seconds and a time to effect of less than 60-90 seconds, . If not the balloon was repositioned to obtain this result After completion of Cryoblation with durations from 180-240 seconds, entrance block was confirmed with the Attain circular catheter in a roving fashion around the antrum of the pulmonary veins Phrenic nerve pacing was performed from the SVC, right innominate vein area and diaphragm voltage was monitored. Diaphragmatic contractions were also monitored manually for strength of contraction. Parameter goals for each cryo freeze Complete occlusion of the appropriate vein -30 degrees C by 30 seconds -40 degrees C by 60 seconds Minimum between minus 40-55 degrees C Thaw time greater than 10 seconds Balloon visualized by intracardiac echo The esophagus was intubated. Esophageal Temperature monitoring with a CIRCA catheter formed. Esophageal deflection for hypothermia of the esophagus below 30 degrees C Left superior pulmonary vein Complete isolation, entrance block Left inferior pulmonary vein Complete isolation, entrance block Right superior pulmonary vein, during phrenic nerve pacing Complete isolation, entrance block Right inferior pulmonary vein, during phrenic nerve pacing Complete isolation, entrance block At the end of the procedure the Achieve catheter was once again used to check for entrance block Phrenic nerve stimulation was performed to confirm diaphragmatic stimulation the end of the procedure Cine fluoroscopy was performed at the very end of the procedure to confirm movement of both diaphragms with inspiration and expiration At the end of the procedure the patient was extubated Heparin was reversed Venous sheaths were removed and hemostasis assured PROCEDURES PERFORMED Diagnostic EP study CS pacing and recording Left and right transseptal catheterization Catheter the mapping of the tachycardia (NOT 3D mapping) Intracardiac echocardiography Pulmonary vein isolation with transseptal and comprehensive EPS, [id number]
--- NOTE | 2021-01-14 16:27 | P.PRLE ---
RE: Kervin Ortiz Dear Dr. Reynaldo Galeana underwent a diagnostic EP study and atrial fibrillation ablation with cryoablation of the pulmonary veins All 4 pulmonary veins was successfully ablated His sinus node function was abnormal at EP study as been noted clinically in the past AV node function normal He will continue ELIQUIS and follow-up with you and Dr. Morse as before Thank you for entrusting me with the care of the patient Warm regards Sincerely Ricki Plascencia
[2021-01-14] MEDS ORDERED: ACETAMINOPHEN IV (For NPO) 1,000 MG in EMPTY BAG 1 BAG IVPB ONE (16:28)
[2021-01-14] MEDS ORDERED: ACETAMINOPHEN TAB 325 MG TAB PO PRN (16:28)
[2021-01-14] MEDS ORDERED: MECLIZINE 25 MG TAB PO PRN (16:29)
[2021-01-14] MEDS: APIXABAN 5 MG TAB PO SCH (20:45)
[2021-01-14] MEDS: METOPROLOL TARTRATE 50 MG TAB PO SCH (20:45)
[2021-01-14] MEDS ORDERED: ATORVASTATIN 80 MG TAB PO SCH (21:00)
[2021-01-15 01:36] VITALS: RESP 18
[2021-01-15] MEDS: SODIUM CHLORIDE 0.9% 1,000 ML IV SCH (03:52)
[2021-01-15 07:40] VITALS: BP 125/77; PULSE 70; TEMP 97.6
[2021-01-15] MEDS: METOPROLOL TARTRATE 50 MG TAB PO SCH (08:00)
[2021-01-15] MEDS: APIXABAN 5 MG TAB PO SCH (08:00)
[2021-01-15] MEDS ORDERED: CHLORTHALIDONE 25 MG TAB PO SCH (09:00)
[2021-01-15] MEDS ORDERED: PANTOPRAZOLE 40 MG TABLET PO SCH (09:00)
[2021-01-15] MEDS ORDERED: CLOPIDOGREL 75 MG TAB PO SCH (09:00)
[2021-01-15] MEDS ORDERED: amLODIPine 2.5 MG TAB PO SCH (09:00)
[2021-01-15] MEDS ORDERED: EZETIMIBE 10 MG TAB PO SCH (09:00)
[2021-01-15] MEDS ORDERED: LOSARTAN 50 MG TAB PO SCH (09:00)
[2021-01-15] MEDS ORDERED: OXYBUTYNIN 10 MG TAB.ER.24 PO SCH (09:00)
--- NOTE | 2021-01-15 15:24 | P.DS ---
Providers Attending physician: Ricki Plascencia Primary care physician: Kandy Schaffer DO Hospital Course: Patient is doing well No chest discomfort no dizziness no lightheadedness or palpitations He is ambulating in the hallways/room On examination Blood pressure 116/64, pulse rate in the 70s, afebrile and 7.6 Normal heart sounds normal S1 normal S2 Breath sounds are clear no rhonchi no crackles Abdomen soft Groins of healed well his no hematoma Impression Paroxysmal atrial fibrillation with RVR Underlying Sick Sinus Syndrome Successful PVI with complete isolation of the pulmonary veins Plan Continue anticoagulation and continue all cardiac medications Discharge home today in follow-up with Dr. Morse in a week Plan - Discharge Summary Discharge Rx Participant: No New Discharge Prescriptions: No Action Losartan [Cozaar] 75 mg PO QAM Metoprolol Tartrate [Lopressor] 50 mg PO BID 30 Days #60 tab Clopidogrel [Plavix] 75 mg PO QAM Meclizine [Antivert] 50 mg PO DAILY PRN PRN Reason: DIZZINESS Oxybutynin Chloride [Ditropan XL] 10 mg PO QAM Omeprazole 20 mg PO QAM amLODIPine [Norvasc] 2.5 mg PO QAM Ezetimibe [Zetia] 10 mg PO QAM Vitamin E [Vitamin E (1000 Iu = 450 MG)] 1 cap PO DAILY Magnesium 1 tab PO DAILY Cholecalciferol [Vitamin D3 (25 Mcg = 1000 Iu)] 1 tab PO DAILY Atorvastatin [Lipitor] 80 mg PO HS Apixaban [Eliquis] 5 mg PO BID #60 tab Chlorthalidone 25 mg PO QAM Garlic 1 tab PO DAILY Ferrous Sulfate [Iron (65 MG Elemental)] 325 mg PO DAILY Cyanocobalamin (Vitamin B-12) [Vitamin B-12] 1 tab PO DAILY Discharge Medication List Atorvastatin [Lipitor] 80 mg PO HS 09/18/20 [History] Losartan [Cozaar] 75 mg PO QAM 09/18/20 [History] Apixaban [Eliquis] 5 mg PO BID #60 tab 09/19/20 [Rx] Metoprolol Tartrate [Lopressor] 50 mg PO BID 30 Days #60 tab 09/19/20 [Rx] Chlorthalidone 25 mg PO QAM 01/07/21 [History] Cholecalciferol [Vitamin D3 (25 Mcg = 1000 Iu)] 1 tab PO DAILY 01/07/21 [History] Clopidogrel [Plavix] 75 mg PO QAM 01/07/21 [History] Cyanocobalamin (Vitamin B-12) [Vitamin B-12] 1 tab PO DAILY 01/07/21 [History] Ezetimibe [Zetia] 10 mg PO QAM 01/07/21 [History] Ferrous Sulfate [Iron (65 MG Elemental)] 325 mg PO DAILY 01/07/21 [History] Garlic 1 tab PO DAILY 01/07/21 [History] Magnesium 1 tab PO DAILY 01/07/21 [History] Meclizine [Antivert] 50 mg PO DAILY PRN 01/07/21 [History] Omeprazole 20 mg PO QAM 01/07/21 [History] Oxybutynin Chloride [Ditropan XL] 10 mg PO QAM 01/07/21 [History] Vitamin E [Vitamin E (1000 Iu = 450 MG)] 1 cap PO DAILY 01/07/21 [History] amLODIPine [Norvasc] 2.5 mg PO QAM 01/07/21 [History] Follow up Appointment(s)/Referral(s): Kandy Schaffer DO [Primary Care Provider] - 1 Week Kodak Morse MD [STAFF PHYSICIAN] - 01/24/21 2:15 pm Patient Instructions/Handouts: A-fib (Atrial Fibrillation) (DC), Cardiac Ablation (DC) Activity/Diet/Wound Care/Special Instructions: Left and right groin punctures keep dry Procedure preformed 01/14/2021 Activity as tolerated Diet as tolerated Discharge Disposition: HOME SELF-CARE
== END 2021-01-15 13:32 | disposition home or self-care (01) ==
LOC: CATHEP 11:33 → 6NMEDSUR 17:01 → CATHEP 01-15 13:32
PROVIDERS: ATTEND Internal Medicine Clinical Cardiac Electrophysiology
DX: I48.0 Paroxysmal atrial fibrillation (principal); I25.10 Atherosclerotic heart disease of native coronary artery without angina pectoris; Z20.822 Contact with and (suspected) exposure to COVID-19
CPT/HCPCS: 93656; 80048; 85025; 87635; J2001; J0131; Q9967; J1644; 93609; 93662

== ENCOUNTER 2024-05-19 06:08 | Day surgery (SDC) | payer MEDICARE ==
--- NOTE | 2024-05-18 11:05 | P.HPIHPCON ---
History of Present Illness H&P Date: 05/18/24 Chief Complaint: Artificial urethral sphincter erosion This is a 78-year-old male status post placement of an artificial urinary sphincter on March 29. He presented to the office after noticing erosion of the pump along the scrotal cavity. Discussed with him given the evidence of erosion I do recommend proceeding with removal of the AUS device. He is aware of the risk benefit and the rationale of doing this in details. Discussed with him after removing the entire device he can have a reinsertion in 3 to 6 months. He understood all the risk and agreed to proceed Consent for Procedure: I have explained the operation/procedure to the patient, including the risks, benefits, side effects, alternative therapies (including not receiving the proposed treatment or service), the likelihood of the patient achieving his/her goals, and potential recuperation problems for the procedure/sedation/analgesia, as well as any blood products, if indicated. I also explained to the patient the risks, benefits and side effects of the alternatives, as well as the risks related to not receiving the proposed procedure, care, treatment, or services. Past Medical History Past Medical History: Atrial Fibrillation, Coronary Artery Disease (CAD), Cancer, Heart Failure, CVA/TIA, GERD/Reflux, Hyperlipidemia, Hypertension, Myocardial Infarction (PA) Additional Past Medical History / Comment(s): VERTIGO,ministroke-1999 no residual,prostate Ca-no radiation or chemo,urinary leakage continuous Last Myocardial Infarction Date:: unk History of Any Multi-Drug Resistant Organisms: None Reported Past Surgical History: Coronary Bypass/CABG, Heart Catheterization With Stent, Hernia Repair, Joint Replacement, Orthopedic Surgery Additional Past Surgical History / Comment(s): CABG 1999, 2013. CERVICAL SURGERY. PROSTATECTOMY. LEFT KNEE ARTHROPLASTY. SHOULDER REPLACEMENT RIGHT. RIGHT LEG STENT. BILATERAL CATARACTS,rt inguinal hernia repair, artificial urethral sphincter insertion 04/12 Past Anesthesia/Blood Transfusion Reactions: No Reported Reaction Additional Past Anesthesia/Blood Transfusion Reaction / Comment(s): no hx blood transfusion Date of Last Stent Placement:: 2005 Smoking Status: Former smoker - Past Family History Father Family Medical History: Cancer Additional Family Medical History / Comment(s): prostate Ca Mother Family Medical History: Cancer Additional Family Medical History / Comment(s): CVA Medications and Allergies Home Medications Medication Instructions Recorded Confirmed Type Atorvastatin [Lipitor] 80 mg PO HS 09/18/20 05/18/24 History Losartan [Cozaar] 50 mg PO BID 09/18/20 05/18/24 History Metoprolol Tartrate [Lopressor] 50 mg PO BID 30 Days #60 tab 09/19/20 05/18/24 Rx Chlorthalidone 25 mg PO QAM 01/07/21 05/18/24 History Cholecalciferol [Vitamin D3 (25 25 mcg PO DAILY 01/07/21 05/18/24 History Mcg = 1000 Iu)] Clopidogrel [Plavix] 75 mg PO QAM 01/07/21 05/18/24 History Ferrous Sulfate [Iron (65 MG 325 mg PO DAILY 01/07/21 05/18/24 History Elemental)] Garlic 1 tab PO DAILY 01/07/21 05/18/24 History Magnesium 1 tab PO DAILY 01/07/21 05/18/24 History Vitamin E (Dl,Tocopheryl Acet) 1 cap PO DAILY 01/07/21 05/18/24 History [Vitamin E (1000 Iu = 450 MG)] amLODIPine [Norvasc] 5 mg PO QAM 01/07/21 05/18/24 History oxyBUTYnin chloride [Ditropan XL] 10 mg PO BID 01/07/21 05/18/24 History Ascorbic Acid [Vitamin C] 250 mg PO DAILY 03/24/24 05/18/24 History Aspirin 81 mg PO DAILY 03/24/24 05/18/24 History Lansoprazole [Prevacid] 15 mg PO QAM 03/24/24 05/18/24 History Cephalexin [Keflex] 500 mg PO Q8HR 05/18/24 05/18/24 History Ciprofloxacin HCl [Cipro] 500 mg PO BID 05/18/24 05/18/24 History Allergies Allergy/AdvReac Type Severity Reaction Status Date / Time No Known Allergies Allergy Verified 05/18/24 08:33 Surgical - Exam - General no distress, no pain - Eyes normal ocular movement, no pale - ENT normal nares, normal mucosa - Respiratory normal expansion, normal respiratory effort - Abdomen Abdomen: soft, non tender Assessment and Plan Assessment: OR for removal of an AUS, cystoscopy
[2024-05-19] MEDS: LACTATED RINGERS 1,000 ML IV SCH (06:40)
[2024-05-19] MEDS: IV FLUID CONTINUATION 1,000 ML IV ONE (06:40)
[2024-05-19] MEDS: LIDOCAINE 1% (10MG/ML) FOR IV START INTRADERMA PRN (06:40)
[2024-05-19] MEDS: DEXAMETHASONE SOD PHOSPHATE 4 MG/ML 1 ML VIAL IVP STA (07:00)
[2024-05-19] MEDS: ONDANSETRON 4 MG/2 ML VIAL IVP ONE (07:00)
[2024-05-19] MEDS: GENTAMICIN 120 MG in SODIUM CHLORIDE 0.9% 100 ML IVPB PRN (07:10)
[2024-05-19 07:25] LABS: Basophils % (A) 0 %; Eosinophils # (A) 0.2 k/uL (0-0.7); Eosinophils % (A) 2 %; HGB 10.9 gm/dL (13.0-17.5); Lymphocytes # (A) 1.7 k/uL (1.0-4.8); Lymphocytes % (A) 17 %; MCV 90.6 fL (80.0-100.0); Mean Platelet Volume 6.9; Monocytes # (A) 0.7 k/uL (0-1.0); Monocytes % (A) 7 %; Neutrophils # (A) 7.2 k/uL (1.3-7.7); Neutrophils % (A) 72 %; Platelet Count 359 k/uL (150-450); RBC 3.75 m/uL (4.30-5.90); RDW 13.4 % (11.5-15.5)
[2024-05-19] MEDS ORDERED: LIDOCAINE 1% INJ 10MG/ML (20 ML MDV) ONE (07:25)
[2024-05-19] MEDS ORDERED: SUCCINYLCHOLINE CHLORIDE 200 MG/10 ML VIAL IV ONE (07:25)
[2024-05-19] MEDS ORDERED: GLYCOPYRROLATE 0.2 MG/ML 2 ML VIAL ONE (07:25)
[2024-05-19] MEDS ORDERED: HYDROmorphone (PF) 1 MG/ML ONE (07:25)
[2024-05-19] MEDS ORDERED: NEOSTIGMINE 1 MG/ML 10 ML VIAL ONE (07:25)
[2024-05-19] MEDS ORDERED: MIDAZOLAM 2 MG/2 ML VIAL ONE (07:25)
[2024-05-19] MEDS ORDERED: PROPOFOL 10 MG/ML 20 ML VIAL IV ONE (07:25)
[2024-05-19] MEDS ORDERED: ROCURONIUM 10 MG/ML (5 ML VIAL) IV ONE (07:25)
[2024-05-19] MEDS ORDERED: fentaNYL (PF) 50 MCG/ML 2 ML AMP ONE (07:25)
[2024-05-19] MEDS ORDERED: PHENYLEPHRINE 10 MG/ML VIAL ONE (07:25)
[2024-05-19 07:32] LABS: African American GFR (CKD) 87 (>60 ml/min/1.73 sqM); Anion Gap 12 mmol/L; Blood Urea Nitrogen 26 mg/dL (9-20); Calcium 9.1 mg/dL (8.4-10.2); Carbon Dioxide 24 mmol/L (22-30); Chloride 99 mmol/L (98-107); Glucose 119 mg/dL (74-99); Non-African American GFR(CKD) 75 (>60 ml/min/1.73 sqM); Potassium 4.2 mmol/L (3.5-5.1); Sodium 135 mmol/L (137-145)
[2024-05-19] MEDS: BUPIVACAINE (PF) 0.25% 30 ML VIAL SQ ONE (07:48)
[2024-05-19 09:27] VITALS: TEMP 97.1
[2024-05-19] MEDS: HYDROmorphone 0.5 MG/0.5 ML SYRINGE IVP PRN (09:49)
--- NOTE | 2024-05-19 09:57 | P.OP ---
Date of Procedure: 05/19/24 Preoperative Diagnosis: Erosion of artificial urethral sphincter Postoperative Diagnosis: Same Procedure(s) Performed: Explant of an artificial urethral sphincter, cystoscopy Implants: none Anesthesia: IVELISSEA Surgeon: Ryder Choudhary Estimated Blood Loss (ml): 25 Pathology: none sent Condition: stable Disposition: PACU Indications for Procedure: This is a 78-year-old male status post placement of an artificial urinary sphincter on March 29. He presented to the office after noticing erosion of the pump along the scrotal cavity. Discussed with him given the evidence of erosion I do recommend proceeding with removal of the AUS device. He is aware of the risk benefit and the rationale of doing this in details. Discussed with him after removing the entire device he can have a reinsertion in 3 to 6 months. He understood all the risk and agreed to proceed Description of Procedure: Patient was brought to the operating room, general anesthesia was induced. He was prepped and draped in sterile fashion placed in supine position. Next a incision was made along the Eamon scrotum, dartos fascia was dissected down using cautery, dissection was carried down all the way down to the tubing. Of note the pump has eroded through the scrotal skin. At this time I disconnected both of the tubes from the pump. One of the tubes was traced down all the way down to the sphincter. There was quite a bit of induration around the tubing and the sphincter. At this point the sphincter was cut using the Metzenbaums and it was removed intact. There was no injury to the urethra. Cystoscopy was performed which showed no evidence of urethral erosion, and no water was seen leaking from the urethra. At this point attention was then carried to the reservoir, I attempted to remove the reservoir through the scrotal incision but was unable to. This time the previous inguinal incision was incised, subcutaneous tissue was dissected down using cautery, dissection was carried down all the way down to the tubing. This was carried down until the reservoir was removed, the reservoir was removed intact. At this time both incisions were irrigated, the inguinal incision the subcutaneous tissue was closed using 2-0 Vicryl and the skin was closed using 4-0 Monocryl. The scrotal incision was closed using 3-0 Vicryl for the subcutaneous tissue and 3-0 chromic for the skin, skin glue was applied to both incisions. The area of pump erosion was kept open. Patient was awakened from anesthesia and taken to recovery in stable condition
[2024-05-19 10:29] VITALS: RESP 18
[2024-05-19 10:38] VITALS: BP 130/66; PULSE 65
== END 2024-05-19 11:16 | disposition home or self-care (01) ==
LOC: OR 06:08
PROVIDERS: ATTEND Urology
DX: T83.191A Other mechanical complication of implanted urinary sphincter, initial encounter (principal); I48.91 Unspecified atrial fibrillation; I25.10 Atherosclerotic heart disease of native coronary artery without angina pectoris; I50.9 Heart failure, unspecified; Z86.73 Personal history of transient ischemic attack (TIA), and cerebral infarction without residual deficits; E78.5 Hyperlipidemia, unspecified; I11.0 Hypertensive heart disease with heart failure; I25.2 Old myocardial infarction; Z95.1 Presence of aortocoronary bypass graft; Z87.891 Personal history of nicotine dependence; Z79.82 Long term (current) use of aspirin
CPT/HCPCS: 53446; 80048; 85025; J2250; J0330; J1100; J2710; J0690; J2405; J2003; J3010; J1580; J1171 ×2; J2704; J2371; J0665; J1596